=== PATIENT | female | born 1965 | race Caucasian/White ===

== ENCOUNTER → 2018-05-27 | Outpatient (CLI) | payer OTHER ==
[~2018-05-27] MED LIST: ASPI81CH PO; ATOR20 PO; BUSP10 PO; CYCL10 PO; DULO30; DULO60 PO; FISH1000 PO; HYDACE10B; HYDCHL25 PO; LEVSOD100; LEVSOD137 PO; MELO7.5 PO; METF500; NABU500 PO; NAPR375 PO; OMEP20ER PO; OXYACE5T PO; PROM25 PO; RANI150; RANI150 PO; RXCYCL10 PO; TRAZ50 PO
[2018-05-27 12:09] LABS: U Amphetamine Screen Not Detected; U Barbituate Screen Not Detected; U Benzodiazapine Screen Not Detected; U Buprenorphine Screen Not Detected; U Cannabinoids Screen Not Detected; U Cocaine Screen Not Detected; U Methadone Screen Not Detected; U Methamphetamine Screen Not Detected; U Opiates Screen Not Detected; U Oxycodone Screen Not Detected; U Phencyclidine Screen Not Detected; U Propoxyphene Screen Not Detected
== END ==
LOC: LAB SHORT 09:34 → LAB 09:34 → LAB FUT 03-17 09:10
PROVIDERS: Surgery
DX: E66.9 Obesity, unspecified (principal)

== ENCOUNTER 2018-08-30 01:23 | Emergency (ER) | payer OTHER ==
[~2018-08-30] VITALS: Ht 160 cm; Wt 164.2 kg
[2018-08-30] MEDS ORDERED: MELO7.5 PO (02:13)
[2018-08-30] MEDS ORDERED: Naltrexone HCl50 MG PO (02:14)
[2018-08-30] MEDS ORDERED: DULO60 (02:14)
[2018-08-30] MEDS ORDERED: TIZANIDINE HCL4 MG PO (02:14)
[2018-08-30] MEDS ORDERED: OXYB5 PO (02:15)
[2018-08-30] MEDS ORDERED: GABA300 PO (02:15)
== END 2018-08-30 04:06 | disposition home or self-care (01) ==
LOC: ER 01:23
DX: M79.605 Pain in left leg (principal); G89.29 Other chronic pain; I10 Essential (primary) hypertension; M19.90 Unspecified osteoarthritis, unspecified site; M79.10 Myalgia, unspecified site; K21.9 Gastro-esophageal reflux disease without esophagitis; Z79.82 Long term (current) use of aspirin; Z79.899 Other long term (current) drug therapy
CPT/HCPCS: 93971; 99283-25

== ENCOUNTER 2018-10-21 14:06 | Day surgery (SDC) | payer OTHER ==
[~2018-10-21 14:06] MED LIST changes: +DULO60; +GABA300 PO; +Naltrexone HCl50 MG PO; +OXYB5 PO; +TIZANIDINE HCL4 MG PO
--- NOTE | 2018-10-21 15:30 | NUR ---
10/21/18 1530 Cosme Brizuela Bite Block Placed. 3-LEAD EKG REVIEWED WITH PHYSICIAN PRIOR TO START OF PROCEDURE.Patient to ENDO 1History, Chart, Medications and Allergies reviewed before start of procedure.MONITOR INTACT WITH CONTINUOUS PULSE OXIMETRY AND INTERMITTENT BP.O2 VIA N/C INTACT THROUGHOUT SEDATION/PROCEDURE. See Anesthesia record
--- NOTE | 2018-10-21 16:08 | NUR ---
ASSUMED CARE OF PATIENT FROM DANIEL SIMEONS
--- NOTE | 2018-10-21 16:11 | NUR ---
Discharge instructions reviewed with patient. Patient verbalizes understanding. Copy given to patient to take home. Pre-Op teaching done. Pt verbalizes understanding. Discharged via wheelchair to private car for ride home.
== END 2018-10-21 22:45 | disposition home or self-care (01) ==
LOC: ORSCMMR 14:06 → ORD 15:30 → ORSCMMR 22:45
PROVIDERS: Internal Medicine Gastroenterology
PROC: 0DJ08ZZ Inspection of Upper Intestinal Tract, Via Natural or Artificial Opening Endoscopic (ICD-10-PCS; principal; 2018-10-21 15:50)
DX: K21.9 Gastro-esophageal reflux disease without esophagitis (principal); Z01.818 Encounter for other preprocedural examination; J45.909 Unspecified asthma, uncomplicated; E78.5 Hyperlipidemia, unspecified; F32.9 Major depressive disorder, single episode, unspecified; I10 Essential (primary) hypertension; Z87.891 Personal history of nicotine dependence; E66.01 Morbid (severe) obesity due to excess calories; Z68.44 Body mass index [BMI] 60.0-69.9, adult; Z79.82 Long term (current) use of aspirin; Z79.899 Other long term (current) drug therapy
CPT/HCPCS: J7120

== ENCOUNTER → 2019-04-26 | Outpatient (CLI) | payer OTHER ==
[2019-04-26 19:11] LABS: BASOPHILS ABSOLUTE AUTO 0.06 K/mm3 (0.00-0.23); BASOPHILS PERCENT AUTO 0 % (0-2); EOSINOPHILS ABSOLUTE AUTO 0.33 K/mm3 (0.00-0.68); EOSINOPHILS PERCENT AUTO 2 % (0-6); Hematocrit 46.2 % (33.0-51.0); Hemoglobin 14.7 g/dL (11.5-16.0); IMMATURE GRAN ABSOLUTE AUTO 0.11 K/mm3 (0.00-0.10); IMMATURE GRAN PERCENT AUTO 1 % (0-1); LYMPHOCYTES ABSOLUTE AUTO 1.94 K/mm3 (0.84-5.20); LYMPHOCYTES PERCENT AUTO 13 % (21-46); MONOCYTES ABSOLUTE AUTO 1.38 K/mm3 (0.16-1.47); MONOCYTES PERCENT AUTO 9 % (4-13); Mean Corpuscular HGB 28.9 pg (26.0-34.0); Mean Corpuscular HGB Conc 31.8 g/dL (31.5-36.5); Mean Corpuscular Volume 91 fL (80-100); Mean Platelet Volume 10.6 fL (9.1-12.4); NEUTROPHILS ABSOLUTE AUTO 11.61 K/mm3 (1.96-9.15); NEUTROPHILS PERCENT AUTO 75 % (41-73); Platelet Count 427 K/mm3 (150-400); RDW Coefficient Variation 13.3 % (11.7-14.2); Red Blood Cell Count 5.09 M/mm3 (3.80-5.20); White Blood Cell Count 15.43 K/mm3 (4.00-11.30)
[2019-04-26 20:07] LABS: Alanine Aminotransfer (ALT/SGP 30 U/L (12-78); Albumin, Blood 3.4 g/dL (3.4-5.0); Albumin/Globulin Ratio 0.7 (0.8-1.8); Alk Phos 80 U/L (50-136); Anion Gap 6 mmol/L (6-16); Aspartate Aminotrans (AST/SGOT 25 U/L (12-37); Bilirubin, Total 0.6 mg/dL (0.1-1.0); Blood Urea Nitrogen 12 mg/dL (8-24); Bun/Creatinine Ratio 12.1 (12.0-20.0); CO2, Blood 29 mmol/L (21-32); Calcium, Blood 9.1 mg/dL (8.5-10.1); Chloride, Blood 103 mmol/L (98-108); Globulin, Blood 4.9 g/dL (2.2-4.0); Glomerular Filtration Rate >60 (60-); Glucose, Blood 100 mg/dL (70-99); Potassium, Blood 3.8 mmol/L (3.5-5.5); Sodium, Blood 138 mmol/L (136-145); Total Protein, Blood 8.3 g/dL (6.4-8.2)
== END | disposition home or self-care (01) ==
LOC: LAB SHORT 17:54 → LAB 17:54
PROVIDERS: Nurse Practitioner
DX: K52.9 Noninfective gastroenteritis and colitis, unspecified (principal); R10.9 Unspecified abdominal pain
CPT/HCPCS: 80053; 83690; 85025

== ENCOUNTER 2019-09-03 10:02 | Day surgery (SDC) | payer OTHER ==
[~2019-09-03] VITALS: Ht 160 cm; Wt 165.4 kg
[~2019-09-03 10:02] MED LIST changes: -BUSP10 PO; +BUSP5 PO; -DULO60; +Flovent 110 MCG12 GM INH; +NITR.4SL SL; +PROAIR RESPICL90 MCG IH; +Voltaren100 GM TOP
[2019-09-03] MEDS ORDERED: METO25ER PO (11:06)
--- NOTE | 2019-09-03 15:08 | NUR ---
RIGHT TR BAND DEFLATION STARTED. SITE SOFT NON TENDER WITH NO ACTIVE PAIN, BLEEDING, OR OOZING. PT AOX4. FAMILY PRESENT. NADN AT THIS TIME.
--- NOTE | 2019-09-03 15:44 | NUR ---
PT VERBALIZED UNDERSTANDING OF D/C INSTRUCTIONS. PAPERWORK PROVIDED IN [facility]. TR BAND ON RIGHT WRIST REMOVED, RED CLOTH DOT DRESSING APPLIED. SITE APPEARS SOFT NON TENDER WITH NO ACTIVE BLEEDING, OOZING, OR PAIN NOTED. ARM BOARD ON RIGHT WRIST FOR EXTRA SUPPORT. IV REMOVED FROM LAC WITH CATH INTACT. PRESSURE DRESSING APPLIED. NADN AT TIME OF DISPO. TAKEN OUT TO PRIVATE VEHICLE VIA W/C. PT FAMILY ARRIVES TO DRIVE HER HOME, PT AMBULATES AROUND WITH SLOW STEADY GAIT. ENCOURAGED TO FOLLOW UP SCHEDULED WITH PROVIDER.
== END 2019-09-03 16:00 | disposition home or self-care (01) ==
LOC: MHTC 10:02
PROC: B201YZZ Plain Radiography of Multiple Coronary Arteries using Other Contrast (ICD-10-PCS; principal; 2019-09-03)
PROC: 4A023N7 Measurement of Cardiac Sampling and Pressure, Left Heart, Percutaneous Approach (ICD-10-PCS; principal; 2019-09-03)
DX: I25.10 Atherosclerotic heart disease of native coronary artery without angina pectoris (principal); F32.9 Major depressive disorder, single episode, unspecified; E78.5 Hyperlipidemia, unspecified; E66.01 Morbid (severe) obesity due to excess calories; E03.9 Hypothyroidism, unspecified; G47.33 Obstructive sleep apnea (adult) (pediatric); Z99.89 Dependence on other enabling machines and devices; Z87.891 Personal history of nicotine dependence; Z88.8 Allergy status to other drugs, medicaments and biological substances; Z88.0 Allergy status to penicillin; Z79.82 Long term (current) use of aspirin; Z79.899 Other long term (current) drug therapy; Z68.44 Body mass index [BMI] 60.0-69.9, adult; Z88.2 Allergy status to sulfonamides
CPT/HCPCS: 93458; 99152; 99153; C1769; C1894; J1644; J2250; J3010; J7030; Q9967

== ENCOUNTER 2024-01-06 11:03 | Day surgery (SDC) | payer OTHER ==
[~2024-01-06] VITALS: Ht 157.5 cm; Wt 110.1 kg
[2024-01-06] VITALS (12 sets, daily range): BP systolic 95–121; BP diastolic 58–85
[~2024-01-06 11:03] MED LIST changes: +FOLI1 PO; +METO25ER PO; +THYR60 PO
[2024-01-06] MEDS ORDERED: Ropivacaine 0.5% HCl/Pf 123.125 MG,EPINEPHrine HCL 0.25 MG,Ketorolac Tromethamine 15 MG... INFIL SCH (12:15)
[2024-01-06] MEDS ORDERED: Acetaminophen 500 MG Tab PO SCH ×2 (12:15→16:00)
[2024-01-06] MEDS ORDERED: Lactated Ringer's 1,000 ML IV SCH ×2 (12:15→13:25)
[2024-01-06] MEDS ORDERED: Tranexamic Acid 100 ML IV SCH (12:15)
[2024-01-06] MEDS ORDERED: Chlorhexidine Mouth Care 15 ML UDC MT SCH (12:15)
[2024-01-06] MEDS ORDERED: OxyCODONE HCL 10 MG TABCR PO SCH (12:20)
[2024-01-06] MEDS ORDERED: CeFAZolin Sodium 2,000 MG in NS 100 ML IV SCH ×2 (12:20→22:20)
[2024-01-06] MEDS ORDERED: PREG75 PO (12:44)
--- NOTE | 2024-01-06 12:44 | NUR ---
Ambulatory in Day Surgery History, Chart, Medications and Allergies reviewed before start of procedure. Pre-Op teaching done. Pt verbalizes understanding.
[2024-01-06] MEDS ORDERED: MUPIROCIN1 G2 TOP (12:56)
[2024-01-06] MEDS ORDERED: Metoclopramide HCl 5MG / ML 2ML Vial IV PRN (13:20)
[2024-01-06] MEDS ORDERED: Ondansetron HCl 2 MG / ML 2ML Vial IV PRN ×2 (13:25→14:30)
[2024-01-06] MEDS ORDERED: DiphenhydrAMINE HCL 25 MG Cap PO PRN (13:25)
[2024-01-06] MEDS ORDERED: HYDROmorphone HCl/Pf 1MG SYR IV PRN ×2 (13:25→14:30)
[2024-01-06] MEDS ORDERED: Magnesium Hydroxide Conc 10 ML UDC PO PRN (13:25)
[2024-01-06] MEDS ORDERED: Bisacodyl 10 MG Supp PR PRN (13:30)
[2024-01-06] MEDS ORDERED: OxyCODONE HCL 5 MG TAB PO PRN ×2 (13:35)
[2024-01-06] MEDS ORDERED: Promethazine HCl 25 MG Tab PO PRN (13:35)
[2024-01-06] MEDS ORDERED: Midazolam HCl 1MG / ML 2ML Vial ONE (13:57)
[2024-01-06] MEDS ORDERED: FentaNYL Citrate 50 MCG/ML 2 ML Injection ONE (13:57)
[2024-01-06] MEDS ORDERED: propofoL 40 ML IV ONE (14:21)
[2024-01-06] MEDS ORDERED: Phenylephrine HCl 100 MCG/ML-NS 10MLSYR (1MG/10ML) ONE ×3 (14:28→15:38)
[2024-01-06] MEDS ORDERED: Glycopyrrolate 0.2 MG/ML 5ML VIAL ONE (14:30)
[2024-01-06] MEDS ORDERED: FentaNYL Citrate 50 MCG/ML 2 ML Injection IV PRN (14:30)
[2024-01-06] MEDS ORDERED: Albuterol 2.5 MG/3 ML VIAL INH PRN (14:30)
[2024-01-06] MEDS ORDERED: Dexamethasone Sod Phos 10 MG/ML 1ML VIAL ONE (15:11)
[2024-01-06] MEDS ORDERED: Ketorolac Tromethamine 30mg Vial ONE (15:12)
[2024-01-06] MEDS ORDERED: propofoL 20 ML IV ONE (15:36)
[2024-01-06] MEDS ORDERED: Ketorolac Tromethamine 15mg Vial IV SCH (18:00)
--- NOTE | 2024-01-06 18:35 | NUR ---
SHIFT SUMMARY PT ARRIVED TO SURGICAL FLOOR AT 1715 VIA HOSPITAL BED FROM A [facility]. INCISION SITE C/D/I, FREE OF DRAINAGE, COVERED WITH AQUACEL AND MICKEY BANDAGE. COOL THEARPY APPLIED AND LEG IS ELEVATED ON PILLOW. EATING AND DRINKING WELL. WAITING ON FIRST VOID POST OP STILL. UNABLE TO GET OUT OF BED AT THIS TIME SPINAL IS STILL WEARING OFF AND SHE DOES NOT HAVE FULL SENSATION IN LEGS. A&O X4. VSS, BP RUNNING LOW 100'S BUT SHE STATES THIS IS HER NORMAL. PPP. CAP REFILL GOOD. WIGGLES TOES.
[2024-01-06] MEDS ORDERED: Docusate Sodium 100 MG Cap PO SCH (21:00)
[2024-01-07 04:08] VITALS: BP 99/66
--- NOTE | 2024-01-07 04:29 | NUR ---
SHIFT SUMMARY S/P R TKA. AQUACEL/MICKEY WRAP REMAINS CDI WITH POLAR PACK IN PLACE. UP WITH 1 SBA USING FWW/GB. 2 ROXICODONE/TYLENOL/TORADOL FOR PAIN MANAGEMENT. VOIDING AND ZHANE PO. PLAN TO WORK WITH THERAPY AND DISCHARGE HOME TODAY. VSS. USES CALL LIGHT APPROPRIATELY.
[2024-01-07 05:16] LABS: BASOPHILS ABSOLUTE AUTO 0.01 K/mm3 (0.00-0.23); BASOPHILS PERCENT AUTO 0 % (0-2); EOSINOPHILS PERCENT AUTO 0 % (0-6); Hematocrit 36.4 % (33.0-51.0); Hemoglobin 11.8 g/dL (11.5-16.0); IMMATURE GRAN ABSOLUTE AUTO 0.07 K/mm3 (0.00-0.10); IMMATURE GRAN PERCENT AUTO 0 % (0-1); LYMPHOCYTES ABSOLUTE AUTO 1.07 K/mm3 (0.84-5.20); LYMPHOCYTES PERCENT AUTO 7 % (21-46); MONOCYTES ABSOLUTE AUTO 0.55 K/mm3 (0.16-1.47); MONOCYTES PERCENT AUTO 3 % (4-13); Mean Corpuscular HGB 29.4 pg (26.0-34.0); Mean Corpuscular HGB Conc 32.4 g/dL (31.5-36.5); Mean Corpuscular Volume 91 fL (80-100); Mean Platelet Volume 10.9 fL (9.1-12.4); NEUTROPHILS ABSOLUTE AUTO 14.28 K/mm3 (1.96-9.15); NEUTROPHILS PERCENT AUTO 89 % (41-73); Platelet Count 323 K/mm3 (150-400); RDW Coefficient Variation 12.8 % (11.7-14.2); RDW Standard Deviation 42.4 fL (35.1-46.3); Red Blood Cell Count 4.01 M/mm3 (3.80-5.20); White Blood Cell Count 15.98 K/mm3 (4.00-11.30)
[2024-01-07 05:45] LABS: Bun/Creatinine Ratio 27.2 (12.0-20.0); Calcium, Blood 8.8 mg/dL (8.5-10.1); Creatinine, Blood 0.63 mg/dL (0.40-1.00)
[2024-01-07] MEDS ORDERED: Levothyroxine Sodium 0.137 MG Tab PO SCH (06:00)
[2024-01-07] MEDS ORDERED: Thyroid 60 MG Tab PO SCH (06:00)
[2024-01-07] MEDS ORDERED: Omeprazole 20 MG CapCR PO SCH (06:00)
[2024-01-07] MEDS ORDERED: Aspir 8181 MG PO (08:21)
[2024-01-07] MEDS ORDERED: Atorvastatin 10 MG Tab PO SCH (09:00)
[2024-01-07] MEDS ORDERED: DULoxetine HCL 60 MG Capsule DR PO SCH (09:00)
[2024-01-07] MEDS ORDERED: HydroCHLOROthiazide 25 mg Tab PO SCH (09:00)
[2024-01-07] MEDS ORDERED: Pregabalin 75 MG Cap PO SCH (09:00)
[2024-01-07] MEDS ORDERED: Metoprolol Succinate 25 MG TABCR PO SCH (09:00)
[2024-01-07] MEDS ORDERED: Folic Acid 1 MG TAB PO SCH (09:00)
[2024-01-07] MEDS ORDERED: Aspirin 81 MG Chew PO SCH (09:00)
[2024-01-07] MEDS ORDERED: BusPIRone HCl 5 MG Tab PO SCH (09:00)
[2024-01-07 09:54] VITALS: BP 76/45
[2024-01-07 10:26] VITALS: BP 81/53
[2024-01-07 10:27] VITALS: BP 91/53
--- NOTE | 2024-01-07 13:40 | NUR ---
DISCHARGE PT FEELS READY TO DC NOW. CLEARED THERAPY THIS AM, PAIN TOLERABLE, EATING, DRINKING, VOIDING. DENIES DIZZINESS AT REST & w/ AMBULATION. RX PRE FILLED & HEADED TO GET FWW THAT IS READY AT [facility]. POLAR PACK & DRSGS GIVEN. ESCORTED OUT VIA WC.
== END 2024-01-07 13:40 | disposition home or self-care (01) ==
LOC: ORSCMMR 11:03 → ORD 12:30 → ORSCMMR 12:30 → SURS 17:15 → ORSCMMR 01-07 13:40
PROVIDERS: Orthopaedic Surgery
PROC: 0SRC0JA Replacement of Right Knee Joint with Synthetic Substitute, Uncemented, Open Approach (ICD-10-PCS; principal; 2024-01-06 12:30)
DX: M17.11 Unilateral primary osteoarthritis, right knee (principal); E03.9 Hypothyroidism, unspecified; K21.9 Gastro-esophageal reflux disease without esophagitis; G47.33 Obstructive sleep apnea (adult) (pediatric); M32.9 Systemic lupus erythematosus, unspecified; E66.01 Morbid (severe) obesity due to excess calories; Z68.41 Body mass index [BMI] 40.0-44.9, adult; F41.9 Anxiety disorder, unspecified; Z79.899 Other long term (current) drug therapy; Z98.84 Bariatric surgery status
CPT/HCPCS: 36415; 73560-RT; 80048; 85025; 94762; 97110; 97116; 97162; 97530; A9270; C1713; C1776; J0171; J0690; J0735; J1100; J1885; J2250; J2371; J2704; J2795; J3010; J7120

== ENCOUNTER → 2025-02-05 | Outpatient (CLI) | payer OTHER ==
[~2025-02-05] MED LIST changes: +Aspir 8181 MG PO; +MUPIROCIN1 G2 TOP; +PREG75 PO
[2025-02-05 19:40] LABS: BASOPHILS ABSOLUTE AUTO 0.03 K/mm3 (0.00-0.23); BASOPHILS PERCENT AUTO 0 % (0-2); EOSINOPHILS ABSOLUTE AUTO 0.02 K/mm3 (0.00-0.68); EOSINOPHILS PERCENT AUTO 0 % (0-6); Hematocrit 40.1 % (33.0-51.0); IMMATURE GRAN ABSOLUTE AUTO 0.03 K/mm3 (0.00-0.10); IMMATURE GRAN PERCENT AUTO 0 % (0-1); LYMPHOCYTES ABSOLUTE AUTO 1.98 K/mm3 (0.84-5.20); LYMPHOCYTES PERCENT AUTO 19 % (21-46); MONOCYTES ABSOLUTE AUTO 0.86 K/mm3 (0.16-1.47); MONOCYTES PERCENT AUTO 8 % (4-13); Mean Corpuscular HGB 29.3 pg (26.0-34.0); Mean Corpuscular HGB Conc 32.4 g/dL (31.5-36.5); Mean Corpuscular Volume 90 fL (80-100); Mean Platelet Volume 11.4 fL (9.1-12.4); NEUTROPHILS ABSOLUTE AUTO 7.39 K/mm3 (1.96-9.15); NEUTROPHILS PERCENT AUTO 72 % (41-73); Platelet Count 314 K/mm3 (150-400); RDW Coefficient Variation 13.2 % (11.7-14.2); Red Blood Cell Count 4.44 M/mm3 (3.80-5.20); White Blood Cell Count 10.31 K/mm3 (4.00-11.30)
[2025-02-05 19:59] LABS: Albumin, Blood 3.6 g/dL (3.4-5.0); Bilirubin, Total 0.6 mg/dL (0.1-1.0); Bun/Creatinine Ratio 23.4 (12.0-20.0); Calcium, Blood 8.7 mg/dL (8.5-10.1); Creatinine, Blood 0.77 mg/dL (0.40-1.00); Globulin, Blood 3.6 g/dL (2.2-4.0); Potassium, Blood 3.7 mmol/L (3.5-5.5); Thyroid Stimulating Hormone 7.31 uIU/mL (0.360-4.800); Total Protein, Blood 7.2 g/dL (6.4-8.2)
== END ==
LOC: LAB SHORT 15:10 → LAB 15:10
PROVIDERS: Nurse Practitioner Family
DX: Z32.00 Encounter for pregnancy test, result unknown (principal); R53.81 Other malaise
CPT/HCPCS: 80053; 84443; 85025

== ENCOUNTER 2025-05-23 12:43 | Emergency (ER) | payer OTHER ==
[~2025-05-23] VITALS: Ht 157.5 cm; Wt 103.9 kg
[2025-05-23 13:12] VITALS: BP 156/98
== END 2025-05-23 15:12 | disposition home or self-care (01) ==
LOC: ER 12:43
DX: S09.90XA Unspecified injury of head, initial encounter (principal); S19.9XXA Unspecified injury of neck, initial encounter; V89.2XXA Person injured in unspecified motor-vehicle accident, traffic, initial encounter; K21.9 Gastro-esophageal reflux disease without esophagitis; E03.9 Hypothyroidism, unspecified
CPT/HCPCS: 70450; 72125; 99284-25